=== PATIENT | female | born 1970 | race Caucasian/White ===

== ENCOUNTER 2024-09-12 14:38 | Outpatient (CLI) | payer BC, SELFPAY ==
--- NOTE | ~2024-09-12 | MM_ITS ---
EXAMINATION: MM screening emna BI w alana HISTORY: Screening mammogram TECHNIQUE: Craniocaudal and mediolateral oblique 3-D tomosynthesis images were obtained and synthetic 2-D images were generated. CAD analysis was submitted and interpreted. COMPARISON: No prior mammogram is available for comparison at this institution. BREAST PARENCHYMAL COMPOSITION:Dense: The breasts are heterogeneously dense, which may obscure small masses. FINDINGS: Suspected small mass at the inner, upper left breast. Small rounded mass seen in the cloth hand ior central breast on the right cc view. No suspicious microcalcifications. IMPRESSION: Small bilateral breast masses, as above. Submission of prior exams is recommended to assess for stabi lity. BI-RADS Category 0: Incomplete: Needs prior exams for comparison. Reviewed, dictated and finalized at [facility]. IMPRESSION: Small bilateral breast masses, as above. Submission of prior exams is recommend ed to assess for stability. BI-RADS Category 0: Incomplete: Needs prior exams for comparison.
== END 2024-09-12 14:39 | disposition home or self-care (01) ==
PROVIDERS: PCP Obstetrics & Gynecology; Visit Provider Obstetrics & Gynecology
DX: Z12.31 Encounter for screening mammogram for malignant neoplasm of breast (principal); R92.8 Other abnormal and inconclusive findings on diagnostic imaging of breast
CPT/HCPCS: 77063; 77067

== ENCOUNTER 2024-12-08 09:11 | Outpatient (CLI) | payer BC, SELFPAY ==
--- NOTE | 2024-12-08 09:17 | EST_ITS ---
Patient Info Name: Rubi Mantilla Age: 54 years : 1970 Gender: Female Ht: 67 in Wt: 151 lbs BSA: 1.81 m2 Exam Date: 12/08/2024 9:17 AM Patient Status: O Admit Date: 12/08/2024 Exam Type: CA stress test treadmill A treadmill exercise stress test was performed. Staff Attending Provider: Keshia Francois APN Exercise Technologist: Taylor Hanna Exercise Physician: Stu Soto DO Summary 1. 1. Negative Nas exercise stress test for ischemic ST changes by ECG criteria. 2. 2. Good functional capacity, achieving 8 METs of workload. 3. 3. Hypertensive response to exercise. 4. 4. Appropriate HR response to exercise. 5. 5. Appropriate HR recovery at 1 minute post exercise. 6. 6. No imaging with stress testing. 7. 7. Patient informed of the above results. Protocol: Nas Stress ECG Details Stage: REST Duration (min): 0 min : 39 sec Speed (mph): 0.0 Grade (%): 0 HR (bpm): 57 SBP (mmHg): 124 DBP (mmHg): 78 METS: --- Stage: REST Duration (min): 6 min : 15 sec Speed (mph): 0.0 Grade (%): 0 HR (bpm): 64 SBP (mmHg): 124 DBP (mmHg): 78 METS: --- Stage: STAGE 1 Duration (min): 1 min : 0 sec Speed (mph): 1.7 Grade (%): 10 HR (bpm): 101 SBP (mmHg): 124 DBP (mmHg): 78 METS: --- Stage: STAGE 1 Duration (min): 2 min : 0 sec Speed (mph): 1.7 Grade (%): 10 HR (bpm): 117 SBP (mmHg): 124 DBP (mmHg): 78 METS: --- Stage: STAGE 1 Duration (min): 3 min : 0 sec Speed (mph): 1.7 Grade (%): 10 HR (bpm): 120 SBP (mmHg): 129 DBP (mmHg): 85 METS: --- Stage: STAGE 2 Duration (min): 1 min : 0 sec Speed (mph): 2.5 Grade (%): 12 HR (bpm): 133 SBP (mmHg): 129 DBP (mmHg): 85 METS: --- Stage: STAGE 2 Duration (min): 2 min : 0 sec Speed (mph): 2.5 Grade (%): 12 HR (bpm): 143 SBP (mmHg): 129 DBP (mmHg): 85 METS: --- Stage: STAGE 2 Duration (min): 3 min : 0 sec Speed (mph): 2.5 Grade (%): 12 HR (bpm): 148 SBP (mmHg): 228 DBP (mmHg): 104 METS: --- Stage: STAGE 3 Duration (min): 0 min : 30 sec Speed (mph): 3.4 Grade (%): 14 HR (bpm): 154 SBP (mmHg): 219 DBP (mmHg): 103 METS: --- Stage: RECOVERY Duration (min): 0 min : 29 sec Speed (mph): 0.0 Grade (%): 0 HR (bpm): 137 SBP (mmHg): 219 DBP (mmHg): 103 METS: --- Stage: RECOVERY Duration (min): 1 min : 29 sec Speed (mph): 0.0 Grade (%): 0 HR (bpm): 98 SBP (mmHg): 210 DBP (mmHg): 100 METS: --- Stage: RECOVERY Duration (min): 2 min : 29 sec Speed (mph): 0.0 Grade (%): 0 HR (bpm): 84 SBP (mmHg): 210 DBP (mmHg): 100 METS: --- Stage: RECOVERY Duration (min): 3 min : 29 sec Speed (mph): 0.0 Grade (%): 0 HR (bpm): 84 SBP (mmHg): 180 DBP (mmHg): 89 METS: --- Stage: RECOVERY Duration (min): 4 min : 29 sec Speed (mph): 0.0 Grade (%): 0 HR (bpm): 81 SBP (mmHg): 180 DBP (mmHg): 89 METS: --- Stage: RECOVERY Duration (min): 5 min : 29 sec Speed (mph): 0.0 Grade (%): 0 HR (bpm): 77 SBP (mmHg): 164 DBP (mmHg): 87 METS: --- Stage: RECOVERY Duration (min): 6 min : 29 sec Speed (mph): 0.0 Grade (%): 0 HR (bpm): 77 SBP (mmHg): 164 DBP (mmHg): 87 METS: --- Stage: RECOVERY Duration (min): 7 min : 29 sec Speed (mph): 0.0 Grade (%): 0 HR (bpm): 77 SBP (mmHg): 142 DBP (mmHg): 86 METS: --- Stage: RECOVERY Duration (min): 8 min : 29 sec Speed (mph): 0.0 Grade (%): 0 HR (bpm): 75 SBP (mmHg): 142 DBP (mmHg): 86 METS: --- Stage: RECOVERY Duration (min): 8 min : 44 sec Speed (mph): 0.0 Grade (%): 0 HR (bpm): 76 SBP (mmHg): 127 DBP (mmHg): 85 METS: --- Rest HR: 64 bpm Peak HR: 156 bpm Rest Sys BP: 124 mmHg Peak Sys BP: 228 mmHg Max Pred HR: 168 bpm % Max Pred HR: 93 % Target HR: 143 bpm Max RPP: 35,568 bpm*mmHg Hernandez Score: -1 BP Response: Patient exhibited a hypertensive response with stress Termination Reason: Reached target heart rate or workload Cardiac Symptoms: Shortness of breath Max ST Seg Deviation: 1.40 mm Total Time: 6 min : 30 sec Rest Lima BP: 78 mmHg Peak [place]ima BP: 104 mmHg Angina Score: None Total METS: 8.0 Resting ECG Sinus rhythm. Stress ECG No ST changes. Arrhythmias None. Report Signatures
--- OUTSIDE RECORDS SUMMARY | 2024-12-08 09:51 | XMS_ITS | Clinical Summary ---
Author Organization [facility] Address [address] [place] [address] Care Team Providers Care Electrical Assemblies Supervisor Name Role Phone Unknown, Provider Primary Care Provider Unavaila ble Source Comments [facility],non-owned Affiliates and Associated Physician Practices is amultiple site organization consisting of ambulatory clinics and hospital sitesin [place], [place], [place] and [place]. This disclosure is being madepursuant to the Care Everywhere program and may not contain all information available regarding this patient. Last updated 18.[facility] Allergies No known active allergies Medications * Be aware that medications may not be up to date on this document. Alwaysverify current medications with the patient. 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 Gender Identity Not on file Sexual Orientation Not on file Last Filed Vital Signs Vital Sign Reading Time Taken Comments Blood Pressure 110/68 07/09/2017 3:46 PM SALES RELATIONSHIP MANAGER Pulse 76 07/09/2017 3:46 PM SALES RELATIONSHIP MANAGER Temperature 36.5 C (97.7 F) 07/09/2017 3:46 PM SALES RELATIONSHIP MANAGER Respiratory Rate 16 07/09/2017 3:46 PM SALES RELATIONSHIP MANAGER Oxygen Saturation 98% 07/09/2017 3:46 PM SALES RELATIONSHIP MANAGER Inhaled Oxygen Concentration - - Weight 59 kg (130 lb) 07/09/2017 3:46 PM SALES RELATIONSHIP MANAGER Height 170.2 cm (5' 7) 07/09/2017 3:46 PM SALES RELATIONSHIP MANAGER Body Mass Index 20.36 07/09/2017 3:46 PM SALES RELATIONSHIP MANAGER Plan of Treatment Health Maintenance Due Date Last Done Comments DIANA (AGES 45-75) - COL ON CA SCREENING 1970 COLON MONITORING 1970 COLONOSCOPY - COLON CA SCREENING 1972 CT COLONOGRAPHY - COLON CA SCREENING 1970 Colorectal Cancer Screening 1970 FIT - COLON CA SCREENING 1972 FLEX SIG - COLON CA SCREENING 1972 LIPID TESTING 1970 MAMMOGRAM 1970 HIV SCREENING 1987 HEPATITIS C SCREENING 03/11/1990 DTAP/TDAP/TD VACCINES (1 - Tdap) 1991 HEPATITIS B VACCINE (1 of 3 - 19+ 3-dose series) 1991 PNEUMOCOCCAL VACCINE 50+ (1 of 1 - PCV) 2022 ZOSTER VACCINE (1 of 2) 2022 COVID-19 VACCINE (1 - 2023-2 5 season) 2024 DEPRESSION SCREENING 07/06/2024 INFLUENZA VACCINE (Season Ended) 2025 HIB VACCINE Aged Out No longer eligi ble based on patient's age to complete this topic HPV VACCINE Aged Out No longer eligi ble based on patient's age to complete this topic MENINGOCOCCAL (Group B) VACC INE SHARED DECISION-MAKING Aged Out No longer eligibl e based on patient's age to complete this topic MENINGOCOCCAL GROUPS A/C/Y/W VACCINE Aged Out No longer eligible b ased on patient's age to complete this topic Insurance [facility] Care Teams Electrical Assemblies Supervisor Relationship Specialty Start Date End Date Unknown, Provider PCP - General 05/24/16
== END 2024-12-08 09:12 | disposition home or self-care (01) ==
LOC: ANHCARD 09:13
PROVIDERS: PCP Family Medicine; Visit Provider Nurse Practitioner Adult Health
DX: R07.9 Chest pain, unspecified (principal); I10 Essential (primary) hypertension
CPT/HCPCS: 93017

== ENCOUNTER 2025-01-30 14:02 | Outpatient (CLI) | payer BC, SELFPAY ==
--- OUTSIDE RECORDS SUMMARY | 2025-01-30 14:07 | XMS_ITS | Clinical Summary ---
Author Organization [facility] Address [facility] [place] [address] Care Team Providers Care Oil Program Compliance Specialist Name Role Phone Price Duarte MD Primary Care Provider [phone] Allergies No known active allergies Medications sertraline (ZOLOFT) 50 mg tablet TAKE 1 TABLET(50 MG) BY MOUTH EVERY NIGHT 30 tablet 11 3 Active Additional Information Patient not taking.Reported on 10/05/2024 ergocalciferol (VITAMIN D) 50,000 unit capsule TAKE 1 CAPSULE BY MOUTH 1 TIME A WEEK 4 capsule 2 3 Active Stelara injectionIndica tions:Crohn's disease of large intestine with abscess (HCC) INJECT 90 MG (1 ML) UNDER THE SKIN EVERY 6 WEEKS (DUE FOR LABS 10/2024) 1 mL 1 5 Active Active Problems Problem Noted Date Diagnosed Date Crohn's disease of small and large intestines with complication 05/07/2023 Subjective vision disturbance, bilateral 020 Assessment & Plan (03/30/2020 3:28 PM CDT): Discussed findings in detail. Recommend PAL spectacles and yearly DFE/ sooner if new or worsening symptoms develop Hyperopia with presbyopia, bilateral 03/30/2020 Assessment & Plan (03/30/2020 3:29 PM CDT): rec PAL specs. Discussed adaptation. Crohn's disease of both smal l and large intestine without complication 09/07/2019 Overview (09/09/2019): Added automatically from request for surgery [id number] Crohn's disease of large intestine with abscess ([facility]) 04/07/2019 Overview (08/27/2023): Year of diagnosis: 2017 Year symptoms began: 2016 Phenotype: Penetrating (B3) with perianal disease. Distribution:colonic without upper GI disease (L4). Extraintestinal manifestations: arthropathy Complications: perianal abscess, low vitamin D, thrombocytopenia (sees Heme) Prior treatments: Entyvio, Humira (antibody formation 04/2019), MTX (pt self stopped summer 2019 since did not feel it was working), Cimzia [id number] (05/2019), 02/26/21 level 23 with Ab 292, Cimzia level 35 (11/2019) Current treatment: started stelara 04/15/21, first q8wk injection 06/10, level >10.0, denied for every 4 week dosing but approved for every 6 weeks on 01/21/23 Fecal pascual <15.6 (12/2019), 01/2022 21, 07/2022 15 Prior surgeries: none Endoscopies: Colon 05/2023 Impression: - Perianal skin tags found on perianal exam. - The examined portion of the ileum was normal. - Non-bleeding internal hemorrhoids. - The examination was otherwise normal on direct and retroflexion views. - Simple Endoscopic Score for Crohn's Disease: 0, mucosal inflammatory changes secondary to quiescent Crohn's disease. Biopsied. Diagnosis: A. Small intestine, terminal ileum, biopsy: - Ileal mucosa with no significant abnormality. B. Colon, ascending, biopsy: - Colonic mucosa with no significant abnormality. C. Colon, transverse, biopsy: - Colonic mucosa with no significant abnormality. D. Colon, sigmoid, biopsy: - Colonic mucosa with no significant abnormality. E. Rectum, biopsy: - Rectal mucosa with no significant abnormality. Colon 12/2021 One 3 mm polyp in the distal ascending colon, removed with a cold biopsy forceps. Resected and retrieved. - The examination was otherwise normal on direct and retroflexion views. - Simple Endoscopic Score for Crohn's Disease: 0, mucosal inflammatory changes secondary to quiescent Crohn's disease. - Biopsies were taken with a cold forceps for histology in the rectum, in the mid sigmoid colon, in the mid transverse colon and in the mid ascending colon. Diagnosis: A. Ascending colon, polyp, polypectomy - Colonic mucosa with prominent benign submucosal lymphoid aggregates B. Ascending colon, random, biopsy - Focal active colitis, characterized by single colonic crypt with neurophilic cryptitis, otherwise unremarkable C. Transverse colon, random, biopsy - Colonic mucosa with no histopathologic abnormality D. Sigmoid colon, random, biopsy - Colonic mucosa with no histopathologic abnormality E. Rectum. random, biopsy - Colonic mucosa with no histopathologic abnormality Note: Overall findings are negative for dysplasia, granulomata, and viral cytopathic effect. Colon 03/25: Histologic remission. Colonoscopy 05/26/18 The examined portion of the ileum was normal. Pseudopolypoid and pzoydkjx-[id number]-qffyuqtwk mucosa in the recto-sigmoid colon, in the transverse colon and in the ascending colon. Herron score 1. Endoscopic findings of significant mucosal response and mild patchy erythema and a few pheudopolyps PATH: Small bowel, terminal ileum, biopsy Superficial fragments of small bowel mucosa, with no histopathologic abnormality, Large bowel, ascending colon, biopsy Colonic mucosa with no histopathologic abnormality No glandular architectural distortion, basal lymphoplasmacytosis, activity, granuloma, viral inclusions, or dysplasia, Large bowel, rectosigmoid, biopsy Colorectal mucosa with no histopathologic abnormality No glandular architectural distortion, basal lymphoplasmacytosis, Paneth cell metaplasia, activity, granuloma, viral inclusions, or dysplasia EGD 11/2017 Multiple apthous ulcers, non bleeding esophgeal ulcers, chronic gastritis, normal duodenum PATH: Stomach, biopsy Oxyntic and antral mucosa with active chronic gastritis No Helicobacter pylori (immunohistochemical stain) or intestinal metaplasia, Esophagus, ulcer, biopsy Active esophagitis, negative for fungal organisms (GMS stain), viral inclusions, dysplasia, or malignancy Colonoscopy 11/2017 Colon, descending and sigmoid, ulcer, biopsy Chronic active colitis, characterized by mild glandular architectural disarray, basal lymphoplasmacytosis, cryptitis, focal ulceration, Paneth cell metaplasia, and granulomas No viral inclusions, parasites, dysplasia or malignancy PATH: Colon, descending and sigmoid, ulcer, biopsy Chronic active colitis, characterized by mild glandular architectural disarray, basal lymphoplasmacytosis, cryptitis, focal ulceration, Paneth cell metaplasia, and granulomas No viral inclusions, parasites, dysplasia or malignancy Imaging: CTE 08/2022 IMPRESSION: 1. Questionable mild wall thickening and mucosal enhancement within the transverse colon. This may represent inflammatory bowel disease given patient's history 2. Left corpus luteum cyst and small amount of endometrial fluid. MRE 09/2019: No MR findings of small or large bowel inflammation, and no findings of perianal disease. Previously seen left-sided colonic inflammation and perianal abscess have resolved. CT 11/2017 Colitis involving the transverse, descending, and sigmoid colon extending to the rectum. Perianal abscess measuring 1.3 x 1.2 cm at 8 o'clock position. Overall, findings are concerning for inflammatory bowel disease, likely Crohn's. Given clinical concern, Behcet's colitis can appear similar. Isolated 5 mm nodule in the right lung base. In the absence of respiratory symptoms or risk factors for lung cancer, no further imaging evaluation is recommended. If the patient has risk factors for lung cancer, CT of the chest in 6-12 months may be considered. Incompletely evaluated small pericardial effusion. If indicated, this finding can be further assessed with echocardiogram. Given the above findings, this could be autoimmune in etiology [facility] HBV vaccination status: Non immune Covid vaccine: has had moderna x 2 Assessment & Plan (10/16/2023 10:11 AM CDT): CD doing well. Some mild anticipitory sx's at week 5 but insurance will not as of yet apporve q4. Will continue same and f/u in 6 mo. Assessment & Plan (03/06/2023 11:20 AM CDT): CD with flare that improved with course of steroids and moving stelara to q 6. How long we can get the augmented stelara remains to be seen. Would like to keep at q 6 if possible and not risk a flare. Will f/up in 3 mo. Assessment & Plan (08/20/2022 11:38 AM WINDOW TINTER): CD with periumbilical abdominal pain. Labs not remorakble. Notes much fatigue. Will check tsh and get CTE f/up in 6 weeks. Assessment & Plan (06/07/2021 10:11 AM WINDOW TINTER): CD with arthropathy as well as trombocytopenia. She avoids NSAIDS. So since she has arthopathy I am a bit suspicious that she is not under as much control as she could as such will chec, CBC,CRP, CMP, ESR and FC as well as a stelara level and f/up in 3 mo. If level under 5 then attempt to go to q 4 weeks. Patient was seen in conjunction with one of our housestaff who interviewed and examined the patient. I also examined the patient and I personally did all the documentation. Assessment & Plan (03/22/2021 8:54 AM CDT): After much discussion about the ab's to Cimziia and the fact that sx's are inceasing it is time to move on. We will go with Torrey. Discussed risks and benefits and will send her a [facility] brochure on the med. Will f/up in 8-10 weeks. 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 Arthralgia, urgency 4 bm/day. As such do a noninvasive eval to include CBC,CMP, CRP, ESR, FC and tsh due to fatigue. F/up in 6 weeks. Also check Cimzia level. Assessment & Plan (05/23/2020 11:08 AM WINDOW TINTER): She is doing well with penetrating CD. 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 We did discuss this and whether she should take meds. She will think about it. ? Zoloft. Will give previnar 23 and flu vaccine today. F/up in 4 months. Recommend N95 or KN95 if she can get and tolerate it for the classrooom. Discussed the Covid registry as well. Will f/up in 4 months. Labs ordered. I suspect will need parenteral b12. As last one was 292. She is in histologic remission. Patient with severe thrombocytopenia. Needs to see Hematology beltran. Plt count 41,000! Was last 91 but prior was over 245. Discussed with Kristin who will facilitate hem visit. Assessment & Plan (09/07/2019 2:53 PM WINDOW TINTER): Colonic crohn's disease with perianal abscess noted on imaging at time of diagnosis in 2018. Colonoscopy at that time showed left sided inflammation with granuloma noted on bx. Prior meds include entyvio and humira. Hx ab formation with Humira. Started cimzia and MTX in 2018. She reports her GI symptoms are fairly well controlled. 2 stools daily. Occasional hematocheiza, no abdominal pain. However, joint symptoms persist and have not improved with daily oral MTX. Some recent vision changes. -will change MTX to 15mg injection weekly and assess response -continue cimzia -with rectal discomfort and history of perianal disease would repeat MRE with fistula protocol -had flu and doesn't want flu vaccine, will do prevnar today, had dexa 2017 -question of upper GI crohn's in past. Would repeat colonoscopy in October and with concern for UGI disease would repeat EGD as well -with recent vision changes would refer to opthamology as well -follow up in 3 months Assessment & Plan (04/07/2019 9:24 AM CDT): While the patient has reported improvement in her joint pain and has gained weight, she feels that her stool frequency has increased. Given the extensiveness of her disease, it is possible that she had better control of colonic disease while on Entyvio but has better control of her small bowel disease on Humira. As she is having some improvement in symptoms on Humira we would like to check her trough levels to see if this needs to be adjusted. If the levels are appropriate we would recommend an evaluation of her mucosa. Historically her upper GI Crohn's has been much more aggressive than her ileal or colonic involvement so an EGD would be helpful. Given her history of perianal disease, repeat imaging, an EGD, and colonoscopy may be the best way to assess all of her areas of concern. 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 If this is in effective, Stelara may be appealing or returning to Entyvio Plan 1. Continue Humira 2. Check Humira levels at the trough to determine if her dose needs to be increased and this explains her partial response 3. The patient will need a full endoscopic evaluation once her levels are appropriate including an EGD given her upper GI involvement 4. Patient may be a good candidate for Stelara or return to Entyvio with methotrexate if Humira is insufficient at managing her disease High risk medications (not anticoagulants) long- term use 04/07/2019 Assessment & Plan (03/30/2020 3:28 PM CDT): No abnormal ocular findings. Assessment & Plan (09/07/2019 2:54 PM WINDOW TINTER): High risk medications: As with all patients taking immunosuppressive biologic therapies or immunomodulators, we provide a balanced discussion on benefits and risks associated with these medications. Regarding potential risks, we employ a strategy of active monitoring for medication related toxicities. Toxicities and risks discussed in monitoring include, but are not limited to the following: infusion reactions including anaphylaxis; bacterial, viral and fungal infections; pancreatitis; heart failure; neurologic reactions; hematologic and solid tumors malignancy including an increased risk of lymphoma and skin cancers; bone marrow toxicity including anemia, lymphopenia and immune suppression; hepatotoxicity and potential renal toxicity. Patients are actively assessed through routine laboratories (Q4 month or more frequently) which I personally review and are encouraged to contact us with any questions regarding new symptom development. Assessment & Plan (04/07/2019 9:25 AM CDT): Continue lab monitoring. The patient is encouraged to get a flu shot. We would also recommend that she get vaccinated with Shingrix when she turns 52 and pneumonia vaccines at her convenience Microcytosis 04/07/2019 Assessment & Plan (04/07/2019 9:24 AM CDT): We will recheck the patient's iron status Ulcerative pancolitis without complication 12/11 Immunizations Immunization Administration Dates Next Due Influenza, Quadrivalent, Nguyen l Culture-based MDCK, Preservative Free, Antibiotic Free, Intramuscular 05/23/2020 Moderna SARS-CoV-2 Monovalent Vaccination (12+ Y RS) 08/25/2020 Pneumococcal Conjugate PCV 13 09/07/2019 Pneumococcal Polysaccharide PPV23 05/23/2020 Surgical History Surgery Date Site/Laterality Comments TONSILLECTOMY COLONOSCOPY UPPER GASTROINTESTINAL ENDOSCOPY Medical History Medical History Date Comments Crohn's disease (HCC) 2018 Anxiety Family History Medical History Relation Name Comments Lung cancer Mother Macular degeneration Paternal Grandfather Glaucoma Paternal Grandmother Relation Name Status Comments Mother Paternal Grandfather Paternal Grandmother Social History Tobacco Use Types Packs/Day Years Used Date Smoking Tobacco: Never Smokeless Tobacco: Never Tobacco Cessation:Counseling Given: Not Answered Alcohol Use Standard Drinks/Week Comments Yes 2 (1 standard drink = 0.6 oz pur e alcohol) AUDIT-C Answer Date Recorded Q1: How often do you have a drink containing alc ohol? 2-4 times a month 10/05/2024 Q2: How many drinks containi ng alcohol do you have on a typical day when you are drinking? 1 or 2 10/05/2024 Q3: How often do you have si x or more drinks on one occasion? Never 10/05/2024 Personal Safety Answer Date Recorded Have you ever been in or are you currently in a harmful physical or emotional relationship or is someone making you feel afraid or unsafe? Denies 06/02/2023 Comments No Sex and Gender Information Value Date Recorded Sex Assigned at Not on file Legal Sex Female 7:34 AM WINDOW TINTER Gender Identity Female 12/03/2023 11:06 AM CDT Sexual Orientation Straight 12/03/2023 11 :06 AM CDT Obstetrics History Last Filed Vital Signs Vital Sign Reading Time Taken Comments Blood Pressure 169/81 10/05/2024 9:57 AM CDT Pulse 54 10/05/2024 9:57 AM CDT Temperature 36.8 C (98.3 F) 10/05/2024 9:57 AM CDT Respiratory Rate 20 08/08/2024 5:02 PM WINDOW TINTER Oxygen Saturation 100% 10/05/2024 9:57 AM CDT Inhaled Oxygen Concentration - - Weight 68.8 kg (151 lb 9.6 oz) 10/05/2024 9:57 A M CDT Height 170.2 cm (5' 7) 10/05/2024 9:57 AM CDT Body Mass Index 23.74 10/05/2024 9:57 AM CDT Plan of Treatment Health Maintenance Due Date Last Done Comments Breast Cancer Screening-Mammogram 1972 Cervical Cancer Screening 1972 Depression Screening 1972 DTaP/Tdap/Td Vaccine (1 - Tdap) 1983 Hepatitis B Screening 1990 Regular Well Visit/Exam 18-64 1990 Zoster Vaccine (1 of 2) 2022 Covid-19 Vaccine ( season) 2024 09/22/2020, 08/25/2020 Influenza Vaccine (#1) 2025 05/23/2020 Colon Cancer Screening-Colonoscopy 06/02/2033 06/02/2023, 12/31/2021, 03/27/2020, Additional history exists Pneumococcal vaccine <65 Aged Out 05/23/2020, 10/2019 No longer eligible based on patient's age to complete this topic Hepatitis C Screening Completed 06/19/2020 Procedures Procedure Name Priority Date/Time Associated Diagnosis Comments COLONOSCOPY 06/02/2023 9:34 AM WINDOW TINTER HEPATITIS C ANTIBODY Routine 06/19/2020 9:43 AM WINDOW TINTER Thrombocytopenia from Last 3 Months or Most Recently Relevant to Health Maintenance Results * COLONOSCOPY (06/02/2023 9:34 AM WINDOW TINTER) Anatomical Region Laterality Modality Other Narrative Procedure Note Edmund Coburn MD - 06/02/2023 9:34 AM [facility] Patient Name: Tayla Mantilla Procedure Date: 06/02/2023 9:34 AM Date of : 1970 Admit Type: Outpatient Age: 53 Gender: Female Attending MD: Edmund Coburn M.D. Room: [facility] END[facility]COPY ROOM 3 Note Status: Finalized Procedure: Colonoscopy Indications: Follow-up of Crohn's disease of the small bowel and colon Referring MD: Price Duarte M.D. Providers: Edmund Coburn M.D., Zackery Moses M.D. Medicines: Monitored Anesthesia Care Complications: No immediate complications. Estimated Blood Loss: Estimated blood loss was minimal. Procedure: Pre-Anesthesia Assessment: - Prior to the procedure, a History and Physicalwas performed, and patient medications and allergieswere reviewed. The patient is competent. The risks and benefits of the procedure and the sedation optionsand risks were discussed with the patient. Allquestions were answered and informed consent was obtained. Patient identification and proposed procedure were verified by the physician in the pre-procedurearea. Mental Status Examination: alert and oriented.Airway Examination: normal oropharyngeal airway and neck mobility. Respiratory Examination: clear to auscultation. CV Examination: normal. Prophylactic Antibiotics: The patient does not requireprophylactic antibiotics. Prior Anticoagulants: The patient has taken no anticoagulant or antiplatelet agents. ASA Grade Assessment: II - A patient with mild systemic disease. After reviewing the risks and benefits,the patient was deemed in satisfactory condition to undergo the procedure. The anesthesia plan was touse monitored anesthesia care (MAC). Immediately priorto administration of medications, the patient was re-assessed for adequacy to receive sedatives. The heart rate, respiratory rate, oxygen saturations, blood pressure, adequacy of pulmonary ventilation,and response to care were monitored throughout the procedure. The physical status of the patient was re-assessed after the procedure. - Immediately prior to administration ofmedications, the patient was re-assessed for adequacy to receive sedatives. - The risks and benefits of the procedure and the sedation options and risks were discussed with the patient. All questions were answered and informed consent was obtained. The benefits, risks and alternatives of theprocedure and sedation were discussed and informed consentwas obtained. All questions were answered. Please referto the signed informed consent document in the medical record. The scope was passed under direct vision.The PCF [id number] endoscope was introducedthrough the anus and advanced to 10 cm into the ileum. The colonoscopy was performed without difficulty. The patient tolerated the procedure well. The qualityof the bowel preparation was good. Anatomicallandmarks were photographed. The bowel preparation used was CoLyte via split dose instruction. Findings: Skin tags were found on perianal exam. The terminal ileum appeared normal. Non-bleeding internal hemorrhoids were found during retroflexion. The hemorrhoids were medium-sized. The exam was otherwise without abnormality on direct and retroflexion views. The Simple Endoscopic Score for Crohn's Disease was determined basedon the endoscopic appearance of the mucosa in the following segments: - Ileum: Findings include no ulcers present, no ulcerated surfaces,no affected surfaces and no narrowings. Segment score: 0. - Right Colon: Findings include no ulcers present, no ulcerated surfaces, no affected surfaces and no narrowings. Segment score: 0. - Transverse Colon: Findings include no ulcers present, no ulcerated surfaces, no affected surfaces and no narrowings. Segment score: 0. - Left Colon: Findings include no ulcers present, no ulceratedsurfaces, no affected surfaces and no narrowings. Segment score: 0. - Rectum: Findings include no ulcers present, no ulcerated surfaces,no affected surfaces and no narrowings. Segment score: 0. - Total SES-CD aggregate score: 0. Biopsies were taken with a cold forceps for histology. Verification of patient identification for the specimen was done. Estimated blood loss was minimal. Impression: - Perianal skin tags found on perianal exam. - The examined portion of the ileum was normal. - Non-bleeding internal hemorrhoids. - The examination was otherwise normal on directand retroflexion views. - Simple Endoscopic Score for Crohn's Disease: 0, mucosal inflammatory changes secondary to quiescent Crohn's disease. Biopsied. Recommendation: - Discharge patient to home. - Resume previous diet. - Continue present medications. - Await pathology results. - Return to my office in 8 weeks. - Repeat colonoscopy for surveillance based on pathology results. Attending Participation: I was present and participated during the entire procedure from insertion to removal of the endoscope. Electronically signed by Edmund Coburn MD Edmund Coburn M.D. 06/02/2023 10:22:19 AM . Number of Addenda: 0 Note Initiated On: 06/02/2023 9:34 AM Recognized by the [employer] for promoting quality in endoscopy Edmund Coburn MD ENDOSCOPY PROCEDURES Final Result * Hepatitis C antibody (06/19/2020 9:43 AM WINDOW TINTER) Hep C Ab Nonreactive Nonreactive [facility] Comment:Antibodies to HCV no t detected. Does NOT exclude the possibility of recent exposure to HCV. Blood specimen (specimen) 06/19/2020 9:43 AM WINDOW TINTER 06/19/2020 11:36 AM WINDOW TINTER Jessica Garner MD LAB MICROBIOLOGY - GENERAL ORDERABLES Edited Result - Final [facility] [place] [address] from Last 3 Months or Most Recently Relevant to Health Maintenance Insurance [facility] HMO/POS [facility] CHOICE PLUS [facility] BLUE [employer] [place] Advance Directives For more information, please contact: [phone] * Full Code (Latest Code Status on File) Date Activated Date Inactivated Comments 06/02/2023 9:27 AM 06/02/2023 3:17 PM * Full Code Date Activated Date Inactivated Comments 12/31/2021 9:11 AM 12/31/2021 3:30 PM * Full Code Date Activated Date Inactivated Comments 03/27/2020 8:14 AM 03/27/2020 2:35 PM Care Teams Oil Program Compliance Specialist Relationship Specialty Start Date End Date Price Duarte MD [address] [id number] PCP - General 11/18/17
--- OUTSIDE RECORDS SUMMARY | 2025-01-30 14:07 | XMS_ITS | Encounter Summary ---
Author Organization [facility] Address [address] [place] [address] Phone Care Team Providers Care Medical Assistant Ob Gyn Name Role Phone Price Duarte MD Primary Care Provider [phone] Encounter Details Date Type Department Care Team (Latest Contact Info) Description 07/02/2020 Orders Only [facility] Scanning, Provider Social History Tobacco Use Types Packs/Day Years Used Date Smoking Tobacco: Never Smokeless Tobacco: Never Alcohol Use Standard Drinks/Week Comments Yes 2 (1 standard drink = 0.6 oz pur e alcohol) Comments No Sex and Gender Information Value Date Recorded Sex Assigned at Not on file Legal Sex Female 7:34 AM HEAD OF MARKETING ANALYTICS Gender Identity Female 12/03/2023 11:06 AM CDT Sexual Orientation Straight 12/03/2023 11 :06 AM CDT documented as of this encounter Plan of Treatment Not on file documented as of this encounter Procedures Procedure Name Priority Date/Time Associated Diagnosis Comments SCAN - LABS 07/02/2020 documented in this encounter Results * SCAN - LABS (07/02/2020) us Provider Scanning Final Result documented in this encounter Visit Diagnoses Not on filedocumented in this encounter Additional Health Concerns Infection Onset Date Last Indicated Resolved Time COVID: Suspected 08/08/2024 08/08/2024 08/08/2024 5:23 PM HEAD OF MARKETING ANALYTICS COVID: Suspected 08/08/2024 08/08/2024 08/08/2024 11:48 PM HEAD OF MARKETING ANALYTICS Influenza, adult 08/08/2024 08/08/2024 08/15/2024 3:05 AM HEAD OF MARKETING ANALYTICS documented as of this encounter Care Teams Medical Assistant Ob Gyn Relationship Specialty Start Date End Date Price Duarte MD [address] [address] PCP - General 11/18/17 documented as of this encounter
--- OUTSIDE RECORDS SUMMARY | 2025-01-30 14:07 | XMS_ITS | Referral Summary ---
Author Organization [facility] Address [address] [place] [address] Care Team Providers Care Customer Service Clerk Name Role Phone Price Duarte MD Primary Care Provider [phone] Allergies No known active allergies Medications sertraline [...] (09/09/2019): Added automatically from request for surgery [id number] Crohn's disease of large intestine with abscess ([facility]) 04/07/2019 Overview (08/27/2023): Year of diagnosis: 2017 Year symptoms began: 2016 Phenotype: Penetrating (B3) with perianal disease. Distribution:colonic without upper GI disease (L4). Extraintestinal manifestations: arthropathy Complications: perianal abscess, low vitamin D, thrombocytopenia (sees Heme) Prior treatments: Entyvio, Humira (antibody formation 04/2019), MTX (pt self stopped summer 2019 since did not feel it was working), Cimzia [id number] (05/2019), 02/26/21 level 23 with Ab 292, [...] of the ileum was normal. Pseudopolypoid and jdcnujts-jzrkfwt-jodjialbu mucosa in the recto-sigmoid colon, in the [...] mo. Assessment & Plan (08/20/2022 11:38 AM DRUGLESS DOCTOR): CD with periumbilical abdominal pain. Labs not remorakble. Notes much fatigue. Will check tsh and get CTE f/up in 6 weeks. 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 Arthralgia, urgency 4 bm/day. As such do a noninvasive eval to include CBC,CMP, CRP, ESR, FC and tsh due to fatigue. F/up in 6 weeks. Also check Cimzia level. Assessment & Plan (05/23/2020 11:08 AM DRUGLESS DOCTOR): She is doing well with penetrating CD. [...] visit. Assessment & Plan (09/07/2019 2:53 PM DRUGLESS DOCTOR): Colonic crohn's disease with perianal abscess noted [...] findings. Assessment & Plan (09/07/2019 2:54 PM DRUGLESS DOCTOR): High risk medications: As with all patients [...] PCV 13 09/07/2019 Pneumococcal Polysaccharide PPV23 05/23/2020 Social History Tobacco Use Types Packs/Day Years [...] on file Legal Sex Female 7:34 AM DRUGLESS DOCTOR Gender Identity Female 12/03/2023 11:06 AM CDT Sexual Orientation Straight 12/03/2023 11 :06 AM CDT Last Filed Vital Signs Vital Sign Reading Time Taken Comments Blood Pressure 169/81 10/05/2024 9:57 AM CDT Pulse 54 10/05/2024 9:57 AM CDT Temperature 36.8 C (98.3 F) 10/05/2024 9:57 AM CDT Respiratory Rate 20 08/08/2024 5:02 PM DRUGLESS DOCTOR Oxygen Saturation 100% 10/05/2024 9:57 AM CDT Inhaled Oxygen Concentration - - Weight 68.8 kg (151 lb 9.6 oz) 10/05/2024 9:57 A M CDT Height 170.2 cm (5' 7) 10/05/2024 9:57 AM CDT Body Mass Index 23.74 10/05/2024 9:57 AM CDT Plan of Treatment Not on file Procedures Procedure Name Priority Date/Time Associated Diagnosis Comments COLONOSCOPY 06/02/2023 9:34 AM DRUGLESS DOCTOR HEPATITIS C ANTIBODY Routine 06/19/2020 9:43 AM DRUGLESS DOCTOR Thrombocytopenia from Last 3 Months or Most Recently Relevant to Health Maintenance Results * COLONOSCOPY (06/02/2023 9:34 AM DRUGLESS DOCTOR) Anatomical Region Laterality Modality Other Narrative Procedure Note Edmund Coburn MD - 06/02/2023 9:34 AM [facility] Patient Name: Tayla Mantilla Procedure Date: 06/02/2023 9:34 AM Date of : 1970 Admit Type: Outpatient Age: 53 Gender: Female Attending MD: Edmund Coburn M.D. Room: [facility] 3 Note Status: Finalized Procedure: [...] The scope was passed under direct vision.The PC [id number] endoscope was introducedthrough the anus and [...] On: 06/02/2023 9:34 AM Recognized by the [employer] for promoting quality in endoscopy Edmund Coburn MD ENDOSCOPY PROCEDURES Final Result * Hepatitis C antibody (06/19/2020 9:43 AM DRUGLESS DOCTOR) Hep C Ab Nonreactive Nonreactive REYMUNDO DACOSTA Comment:Antibodies to HCV no t detected. Does NOT exclude the possibility of recent exposure to HCV. Blood specimen (specimen) 06/19/2020 9:43 AM DRUGLESS DOCTOR 06/19/2020 11:36 AM DRUGLESS DOCTOR Jessica Garner MD LAB MICROBIOLOGY - GENERAL ORDERABLES Edited Result - Final REYMUNDO DACOSTA [facility] [place] [address] from Last 3 Months or Most Recently Relevant to Health Maintenance Insurance [facility] HMO/POS [facility] [employer] [facility] [facility] HMO/PPO Address: [address] [address] [place] [address] [facility] H[facility]/PPO Address: [address] [address] [place] [address] [facility] [employer] [place] Advance Directives For more information, please contact: [phone] * Full Code (Latest Code Status on File) Date Activated Date Inactivated Comments 06/02/2023 9:27 AM 06/02/2023 3:17 PM * Full Code Date Activated Date Inactivated Comments 12/31/2021 9:11 AM 12/31/2021 3:30 PM * Full Code Date Activated Date Inactivated Comments 03/27/2020 8:14 AM 03/27/2020 2:35 PM Care Teams Customer Service Clerk Relationship Specialty Start Date End Date Price Duarte MD [address] [address] PCP - General 11/18/17
--- OUTSIDE RECORDS SUMMARY | 2025-01-30 14:07 | XMS_ITS | Clinical Summary ---
Author Organization [facility] [employer] Address [address] [place] [address] Care Team Providers Care Composition Stone Applicator Name Role Phone Unknown, Provider Primary Care Provider Unavaila ble Source Comments [facility] [employer],non-owned Affiliates and Associated Physician Practices is amultiple site organization consisting of ambulatory clinics and hospital sitesin [place], [place], [place] and [place]. This disclosure is being madepursuant to the Care Everywhere program and may not contain all information available regarding this patient. Last updated 18.[facility] [employer] Allergies No known active allergies Medications * [...] on file Legal Sex Female 10:00 PM FIRST HELPER Gender Identity Not on file Sexual Orientation Not on file Last Filed Vital Signs Vital Sign Reading Time Taken Comments Blood Pressure 110/68 07/09/2017 3:46 PM FIRST HELPER Pulse 76 07/09/2017 3:46 PM FIRST HELPER Temperature 36.5 C (97.7 F) 07/09/2017 3:46 PM FIRST HELPER Respiratory Rate 16 07/09/2017 3:46 PM FIRST HELPER Oxygen Saturation 98% 07/09/2017 3:46 PM FIRST HELPER Inhaled Oxygen Concentration - - Weight 59 kg (130 lb) 07/09/2017 3:46 PM FIRST HELPER Height 170.2 cm (5' 7) 07/09/2017 3:46 PM FIRST HELPER Body Mass Index 20.36 07/09/2017 3:46 PM FIRST HELPER Plan of Treatment Health Maintenance Due Date [...] season) 2024 DEPRESSION SCREENING 07/06/2024 INFLUENZA VACCINE (#1) 2025 HIB VACCINE Aged Out No longer [...] patient's age to complete this topic Insurance [facility] [place] [id number] Care Teams Composition Stone Applicator Relationship Specialty Start Date End Date Unknown, Provider PCP - General 05/24/16
--- NOTE | 2025-02-10 12:18 | WPDHOLTEREM ---
Holter/Event Monitor Holter/Event Monitor Date of procedure: 01/30/25 Holter/Event Procedure: 3-7 Day Holter Monitor Indications: Chest pain Conclusion: 1. 7 days holter monitor on 01/30/25. 2. Predominant rhythm is sinus rhythm. HR range 41-125 bpm; average HR 67 bpm. HR at 41 bpm was on 01/31/25 at 6:04 am. 3. There are rare premature supraventricular complexes and rare supraventricular couplets. There are 2 episodes of supraventricular tachycardia, fastest at 118 bpm and longest lasting 6 beats. 4. There are rare premature ventricular complexes. No ventricular tachycardia. 5. No significant pauses greater than 3 seconds. 6. Patient reports 10 episodes of symptoms of fluttering, shortness of breath, chest tightness which demonstrate sinus rhythm, HR range 47-107 bpm with 2 episodes with PAC's.
== END 2025-01-30 14:03 | disposition home or self-care (01) ==
PROVIDERS: PCP Family Medicine; Visit Provider Nurse Practitioner Adult Health
DX: R07.9 Chest pain, unspecified (principal); I10 Essential (primary) hypertension
CPT/HCPCS: 93242